=== PATIENT | male | born 1955 | race African-American/Black ===

== ENCOUNTER 2020-07-05 21:43 | Emergency (ER) | payer MEDICAID ==
[~2020-07-05] VITALS: Ht 185.4 cm; Wt 105.0 kg
[2020-07-05 23:32] VITALS: BP 100/57
--- NOTE | 2020-07-05 23:49 | PHYS DOC ---
Past Medical History Past Medical History: Other Additional Past Medical Histor: BLIND Past Surgical History: Other Smoking Status: Never Smoker Alcohol Use: None General Adult EDM: Chief Complaint: TESTICULAR PAIN OR INJURY HPI: HPI: The history was obtained from the patient. Patient is a 65-year-old male with PMH blindness who presents with a chief complaint of penile swelling. Patient states 2 days ago he fell asleep on the toilet. He states his toilet has a receipt. He states he woke up and somehow pinched his penis to the toilet seat in the padded cushion. He states he has been able to urinate without difficulty since then. He is unsure whether he has had any hematuria given his blindness. He denies any dysuria. Denies any testicular pain. He denies any penile pain whatsoever. States his penis was not erect when the injury occurred. He states he has noted swelling to the distal aspect of the penis. He states that he wou ld not presented to the hospital today had not been at the encouragement of his sister. No other complaints. Review of Systems: Review of Systems: Constitutional: Denies fever or chills. [] Eyes: Denies change in visual acuity. [] HENT: Denies nasal congestion or sore throat. [] Respiratory: Denies cough or shortness of breath. [] Cardiovascular: Denies chest pain or edema. [] GI: Denies abdominal pain, nausea, vomiting, bloody stools or diarrhea. [] : Penile swelling Musculoskeletal: Denies back pain or joint pain. [] Integument: Denies rash. [] Neurologic: Denies headache, focal weakness or sensory changes. [] Endocrine: Denies polyuria or polydipsia. [] Lymphatic: Denies swollen glands. [] Psychiatric: Denies depression or anxiety. [] Heart Score: Risk Factors: Risk Factors: DM, Current or recent (<one month) smoker, HTN, HLP, family history of CAD, obesity. Risk Scores: Score 0 - 3: 2.5% MACE over next 6 weeks - Discharge Home Score 4 - 6: 20.3% MACE over next 6 weeks - Admit for Clinical Observation Score 7 - 10: 72.7% MACE over next 6 weeks - Early Invasive Strategies Allergies: Allergies: Allergies Coded Allergies Type Severity Reaction Last Updated Verified No Known Drug Allergies 07/05/20 No Physical Exam: PE: Constitutional: Well developed, well nourished, no acute distress, non-toxic appearance. [] HENT: Normocephalic, atraumatic, bilateral external ears normal, oropharynx moist, no oral exudates, nose normal. [] Eyes: PERRLA, EOMI, conjunctiva normal, no discharge. [] Neck: Normal range of motion, no tenderness, supple, no stridor. [] Cardiovascular:Heart rate regular rhythm, no murmur [] Lungs & Thorax: Bilateral breath sounds clear to auscultation [] Abdomen: Soft, nontender, nonacute abdomen. No involuntary guarding or rigidity noted. No acute peritonitis. : Mild swelling to the dorsal aspect of the penis. Uncircumcised. No blood at the external urethral meatus. Skin: Warm, dry, no erythema, no rash. [] Back: No tenderness, no CVA tenderness. [] Extremities: No tenderness, no cyanosis, no clubbing, ROM intact, no edema. [] Neurologic: Alert and oriented X 3, normal motor function, normal sensory function, no focal deficits noted. [] Psychologic: Affect normal, judgement normal, mood normal. [] Current Patient Data: Labs: Laboratory Tests Test 07/05/20 23:50 Urine Collection Type Unknown Urine Color Shea Urine Clarity Clear Urine pH 5.5 Urine Specific [place] 1.020 Urine Protein 100 mg/dL Urine Glucose (UA) Negative mg/dL Urine Ketones (Stick) Negative mg/dL Urine Blood Negative Urine Nitrite Negative Urine Bilirubin Small Urine Urobilinogen Dipstick 1.0 mg/dL Urine Leukocyte Esterase Moderate Urine RBC 0 /HPF Urine WBC 1-4 /HPF Urine Squamous Epithelial Cells Mod /LPF Urine Amorphous Sediment Present /HPF Urine Bacteria Few /HPF Urine Hyaline Casts Few /HPF Urine Mucus Marked /LPF Urine Sperm Present /HPF Vital Signs: Vital Signs Date Time Temp Pulse Resp B/P (MAP) Pulse Ox O2 Delivery O2 Flow Rate FiO2 07/05/20 21:58 98.5 112 24 141/75 (97) 94 Room Air 98.5 EKG: EKG: [] Radiology/Procedures: Radiology/Procedures: [] Course & Med Decision Making: Course & Med Decision Making Pertinent Labs and Imaging studies reviewed. (See chart for details) Patient is a 65-year-old male who presents with complaint of penile swelling status post injury 2 days ago. Vital signs unremarkable. Exam noted above. Urinalysis without evidence of hematuria or infection. Imaging deferred as penile fracture is a clinical diagnosis. Denies any testicular pain therefore ultrasound was deferred. Overall I do a very low suspicion for penile fracture based on patient's mechanism he does have worsening swelling on repeat examination. Given this and inability to visualize the external urethral meatus I did recommend transfer to [facility] for urologic evaluation. Patient has been accepted by . Patient is declining ambulance transfer. He is requesting private transport. Overall I do feel this is reasonable. Sister was at bedside to transfer the patient to [facility]. His vital signs were stable prior to transfer. Dragon Disclaimer: Dragferny Disclaimer: This electronic medical record was generated, in whole or in part, using a voice recognition dictation system. Departure Departure Impression: Primary Impression: Penis injury Qualified Codes: S39.94XA - Unspecified injury of external genitals, initial encounter Disposition: 01 HOME, SELF-CARE Condition: GOOD Referrals: NON,STAFF (PCP) Patient Instructions: Penile Fracture Additional Instructions: [facility] Address: [address], [place] [address] [facility] [address] [place] [address] [facility] [address] [place] [address] [facility] [address] [address] [facility] [address] [place] [address] [facility] [address] [place] [address] [facility] [address] [place] [address] [facility] [address] [place] [address] [facility] [place] [address] [place] [address] [facility] [address] [place] [address] [facility] [address] [place] [address] Justicifation of Admission Dx: Justifications for Admission: Justification of Admission Dx: N/A HORTENCIA KEYS DO Jul 05, 2020 23:49
[2020-07-06 00:25] LABS: BILIRUBIN,URINE SMALL (NEG); CLARITY,URINE CLEAR; COLOR,URINE AMBER; NITRITE,URINE NEGATIVE (NEG); PH,URINE 5.5 (<5.0-8.0); PROTEIN,URINE 100 mg/dL (NEG-TRACE)
[2020-07-06 00:33] LABS: BACTERIA,URINE FEW /HPF (0-FEW); RBC,URINE 0 /HPF (0-2); SQUAMOUS EPITHELIAL CELL,UR MOD /LPF
[2020-07-06 00:34] LABS: AMORPHOUS SEDIMENT,UR PRESENT /HPF; HYALINE CASTS, URINE FEW /HPF; SPERM,URINE PRESENT /HPF
== END 2020-07-06 02:11 | disposition home or self-care (01) ==
LOC: ER 21:43
DX: S39.94XA Unspecified injury of external genitals, initial encounter (principal); W22.8XXA Striking against or struck by other objects, initial encounter; Y93.89 Activity, other specified; Y92.89 Other specified places as the place of occurrence of the external cause; Y99.8 Other external cause status
CPT/HCPCS: 81001; 87077; 87086; 87186; 99283